=== PATIENT | female | born 1960 | race Two or more races ===

== ENCOUNTER 2018-11-18 09:31 | Outpatient (CLI) | payer OTHER | END 2018-11-18 09:32 | disposition home or self-care (01) | LOC: SONOGRAMA 09:31 → MAMO-SONO 10:15 | DX: N84.1 Polyp of cervix uteri (principal); R10.2 Pelvic and perineal pain ==

== ENCOUNTER 2019-03-19 09:56 | Day surgery (SDC) | payer OTHER ==
[~2019-03-19 09:56] MED LIST: METFORMIN HCL500 MG PO; OLMESARTAN-HCT1 EAC1 PO; SYNTHROID137 MCG PO
[2019-03-19] MEDS ORDERED: Tylenol #3 PO (17:38)
[2019-03-19] MEDS ORDERED: DOXYCYCLINE150 MG PO (17:38)
== END 2019-03-19 21:25 | disposition home or self-care (01) ==
LOC: CIR.AMB 09:56 → O/R 19:17 → SURH 19:20 → O/R 19:58 → CIR.AMB 21:25 → O/R 21:25
DX: N84.0 Polyp of corpus uteri (principal); D25.0 Submucous leiomyoma of uterus

== ENCOUNTER 2021-01-26 05:59 | Day surgery (SDC) | payer OTHER ==
[~2021-01-26 05:59] MED LIST changes: +DOXYCYCLINE150 MG PO; +Tylenol #3 PO
[2021-01-26] MEDS ORDERED: MORGIDOX100 MG PO (12:52)
[2021-01-26] MEDS ORDERED: NAPR500T14 PO (12:52)
== END 2021-01-26 16:15 | disposition home or self-care (01) ==
LOC: CIR.AMB 05:59
PROVIDERS: ATTEND Obstetrics & Gynecology
DX: D25.0 Submucous leiomyoma of uterus (principal); N84.0 Polyp of corpus uteri; Z20.822 Contact with and (suspected) exposure to COVID-19

== ENCOUNTER 2021-09-26 20:30 | Inpatient (IN) | payer OTHER ==
[~2021-09-26] VITALS: Ht 165.1 cm; Wt 103.9 kg
[~2021-09-26 20:30] MED LIST changes: +MORGIDOX100 MG PO; +NAPR500T14 PO
== END 2021-09-30 14:48 | disposition home or self-care (01) | DRG 761 ==
LOC: OB/GYN 20:30
PROVIDERS: ADMIT Obstetrics & Gynecology; ATTEND Obstetrics & Gynecology
DX: N95.0 Postmenopausal bleeding (principal); D25.0 Submucous leiomyoma of uterus; N84.0 Polyp of corpus uteri

== ENCOUNTER 2021-12-27 07:45 | Inpatient (IN) | payer OTHER ==
[~2021-12-27] VITALS: Ht 165.1 cm; Wt 99.3 kg
[2021-12-27] MEDS ORDERED: OLMSRTN-AMLDPN1 EAC4 PO (09:06)
[2022-01-04] MEDS ORDERED: FAMOTIDINE40 MG (08:23)
[2022-01-04] MEDS ORDERED: OLMESARTAN-HCT1 EAC1 (08:23)
[2022-01-04] MEDS ORDERED: LORATADINE10 MG (08:23)
[2022-01-04] MEDS ORDERED: LANSOPRAZOLE30 MG (08:23)
[2022-01-04] MEDS ORDERED: DICLOFENAC SOD100 GM (08:23)
[2022-01-04] MEDS ORDERED: MEGESTROL ACETA40 MG (08:23)
[2022-01-04] MEDS ORDERED: MEDROXYPROGESTE10 MG (08:24)
[2022-01-04] MEDS ORDERED: ABATINEX680 MG (08:24)
== END 2022-01-04 16:01 | disposition home or self-care (01) | DRG 743 ==
LOC: OB/GYN 12-28 07:45 → O/R 01-03 11:26 → SURG-SUITE 01-03 11:26 → OB/GYN 01-03 15:21 → SURG-SUITE 01-03 15:51
PROVIDERS: ADMIT Specialist; ATTEND Specialist
PROC: 0UT7FZZ Resection of Bilateral Fallopian Tubes, Via Natural or Artificial Opening With Percutaneous Endoscopic Assistance (ICD-10-PCS; 2022-01-03)
PROC: 0UT2FZZ Resection of Bilateral Ovaries, Via Natural or Artificial Opening With Percutaneous Endoscopic Assistance (ICD-10-PCS; 2022-01-03)
PROC: 0DNW4ZZ Release Peritoneum, Percutaneous Endoscopic Approach (ICD-10-PCS; 2022-01-03)
PROC: 0DNN4ZZ Release Sigmoid Colon, Percutaneous Endoscopic Approach (ICD-10-PCS; 2022-01-03)
PROC: 0UN94ZZ Release Uterus, Percutaneous Endoscopic Approach (ICD-10-PCS; 2022-01-03)
PROC: 0UT9FZZ Resection of Uterus, Via Natural or Artificial Opening With Percutaneous Endoscopic Assistance (ICD-10-PCS; principal; 2022-01-03 11:15)
DX: D25.2 Subserosal leiomyoma of uterus (principal); Z20.822 Contact with and (suspected) exposure to COVID-19; N73.6 Female pelvic peritoneal adhesions (postinfective)